=== PATIENT | female | born 1955 | race Caucasian/White ===

== ENCOUNTER → 2016-07-02 | Outpatient (CLI) | payer BC | LOC: FIMAGING 11:38 | DX: Z12.31 Encounter for screening mammogram for malignant neoplasm of breast (principal) | CPT/HCPCS: G0202 ==

== ENCOUNTER → 2017-07-01 | Outpatient (CLI) | payer BC | LOC: FIMAGING 11:25 | PROVIDERS: ATTEND Internal Medicine | DX: Z13.820 Encounter for screening for osteoporosis (principal); Z78.0 Asymptomatic menopausal state ==

== ENCOUNTER → 2017-07-22 | Outpatient (CLI) | payer BC | LOC: FIMAGING 09:08 | PROVIDERS: ATTEND Internal Medicine | DX: Z12.31 Encounter for screening mammogram for malignant neoplasm of breast (principal) ==

== ENCOUNTER → 2017-11-22 | Outpatient (CLI) | payer BC | LOC: BMCIMAGING 10:57 | PROVIDERS: ATTEND Internal Medicine | DX: R05 Cough (principal) ==

== ENCOUNTER → 2018-08-09 | Outpatient (CLI) | payer BC | LOC: FIMAGING 14:12 ==

== ENCOUNTER → 2018-09-07 | Outpatient (CLI) | payer BC | LOC: FIMAGING 11:34 ==